=== PATIENT | female | born 1975 | race Caucasian/White ===

== ENCOUNTER → 2023-10-27 | Day surgery (SDC) | payer OTHER ==
[2023-10-23 11:28] VITALS: BMI 27.9
[~2023-10-27] MED LIST: ACETAMINOPHEN 500 MG TABLET (FP) PO PRN; DEXAMETHASONE SOD PHOSPHATE 10 MG/1 ML VIAL ONE; LIDOCAINE HCL/PF 1% SDV 5ML VIAL ONE
[2023-10-27] MEDS: IOHEXOL 180 MG/1 ML ML IJ ONE
[2023-10-27] MEDS: DEXAMETHASONE SOD PHOSPHATE 10 MG/1 ML VIAL IVPUSH ONE
[2023-10-27] MEDS: LIDOCAINE 1% P/F 10 MG/ML VIAL INF ONE
== END | disposition home or self-care (01) ==
LOC: JASU-SURG 04:22
PROVIDERS: ATTEND Pain Medicine Pain Medicine
DX: Z53.8 Procedure and treatment not carried out for other reasons (principal)
CPT/HCPCS: J1100

== ENCOUNTER 2023-12-03 04:08 | Day surgery (SDC) | payer OTHER ==
[2023-11-27 16:34] VITALS: BMI 27.9
[2023-12-03] MEDS ORDERED: LIDOCAINE HCL/PF 1% SDV 5ML VIAL ONE (07:13)
[2023-12-03] MEDS ORDERED: DEXAMETHASONE SOD PHOSPHATE 10 MG/1 ML VIAL ONE (07:13)
[2023-12-03 11:11] VITALS: RESP 20
[2023-12-03] MEDS: IOHEXOL 180 MG/1 ML ML IJ ONE (12:48)
[2023-12-03] MEDS: DEXAMETHASONE SOD PHOSPHATE 10 MG/1 ML VIAL IVPUSH ONE (12:49)
[2023-12-03] MEDS: LIDOCAINE HCL 1% PRESERVATIVE FREE - 30ML VIAL IJ ONE (12:49)
[2023-12-03] MEDS: ACETAMINOPHEN 500 MG TABLET (FP) PO PRN (13:23)
[2023-12-03 13:51] VITALS: BP 140/65; PULSE 74; TEMP 98.2
== END 2023-12-03 13:39 | disposition home or self-care (01) ==
LOC: JASU-SURG 04:08
PROVIDERS: ATTEND Pain Medicine Pain Medicine
PROC: 3E0R3BZ Introduction of Anesthetic Agent into Spinal Canal, Percutaneous Approach (ICD-10-PCS; 2023-12-03)
PROC: 3E0R33Z Introduction of Anti-inflammatory into Spinal Canal, Percutaneous Approach (ICD-10-PCS; principal; 2023-12-03 12:15)
DX: M54.12 Radiculopathy, cervical region (principal)
CPT/HCPCS: 76000-TC-FY; 81025; J1100